=== PATIENT | male | born 1960 | race Caucasian/White ===

== ENCOUNTER 2021-03-15 09:18 | Emergency (ER) | payer OTHER ==
[2021-03-15] MEDS ORDERED: CEPHALEXIN 250 MG Prepack 8 CAP BOTTLE PO STA (09:33)
[2021-03-15] MEDS ORDERED: BACITRACIN ZINC OINT 1 PACKET TOP STA (09:33)
[2021-03-15] MEDS ORDERED: LIDOCAINE 1%-EPI 1:100000 20 ML MDV SUBQ STA (09:33)
[2021-03-15] MEDS ORDERED: TETANUS/DIPHTHERIA/PERTUSSIS 0.5 ML SYRINGE IM ONE (09:34)
--- NOTE | 2021-03-15 09:37 | ED Physician Documentation ---
History of Present Illness - Stated complaint Stated Complaint: RT ELBOW PX - Chief complaint Chief Complaint: Laceration - History obtained from History obtained from: Patient - Additonal information Additional information: 60-year-old man since with right elbow pain sudden in onset when he had a mechanical fall on stairs onto the flexed elbow this morning, sustaining a laceration that initially was bleeding that has stopped. Patient states the pain is nonradiating, not worse with range of motion, without associated weakness or sensory loss. Constant, aching, worse with pressing on the area n ear the laceration. Unsure of last tetanus shot. Review of Systems Skin: reports: Laceration (s) Musculoskeletal: reports: Extremity pain, Joint pain Neurologic: denies: Focal weakness, Numbness PD PAST MEDICAL HISTORY - Past Medical History Past Medical History: No Cardiovascular: None Respiratory: None Neuro: None Endocrine/Autoimmune: None GI: None : None HEENT: None Psych: None Musculoskeletal: None Derm: None - Past Surgical History Past Surgical History: No - Present Medications Home Medications: Ambulatory Orders Medication Instructions Recorded Confirmed cephALEXin [Keflex] 500 mg PO Q6H #28 tab 03/15/21 - Allergies Allergies/Adverse Reactions: Allergies Allergy/AdvReac Type Severity Reaction Status Date / Time No Known Drug Allergies Allergy Verified 03/15/21 09:21 - Social History Does the pt smoke?: No Smoking Status: Never smoker Does the pt drink ETOH?: Yes Does the pt have substance abuse?: No - Immunizations Immunizations are current?: No Immunizations: TDAP >10years/unknown PD ED PE NORMAL - Vitals Vital signs reviewed: Yes - General General: Alert and oriented X 3, No acute distress, Well developed/nourished - HEENT HEENT: Atraumatic, PERRL, EOMI - Neck Neck: No bony TTP - Derm Derm: Normal color, Warm and dry, Other (Laceration to right posterior elbow just distal to the joint) - Extremities Extremities: No deformity, Normal ROM s pain, Other (Right proximal radius te nder to palpation. 2+ bilateral radial pulses. Normal sensation and cap refill. Normal strength) - Neuro Neuro: Alert and oriented X 3. No: No motor deficit, No sensory deficit - Psych Psych: Normal mood, Normal affect Results - Vitals Vitals: Vital Signs - 24 hr 03/15/21 03/15/21 09:21 10:43 Temperature 36.5 C 36.6 C Heart Rate 56 L 60 Respiratory 18 16 Rate Blood Pressure 122/87 H 130/79 O2 Saturation 97 98 Oxygen O2 Source Room air Procedures - Laceration (location) Upper extremity right Length in cm: 5 Wound type: Linear, Exposure of bone, Exposure of cartilage Neurovascular status: Sensory intact, Motor intact Anesthesia: Lidocaine 1% with epi Wound preparation: Irrigated copiously NS, Wound explored, To the base Skin layer closure: Nylon, Size #-0 - enter number (4), Sutures - enter # (6) Other: Patient tolerated well, No complications, Neurovascular intact, Dressing applied, Tetanus booster given PD MEDICAL DECISION MAKING - ED course ED course: 60-year-old man presents status post fall. X-rays without signs of fracture. Full range of motion on clinical exam. Tetanus updated. We will treat with antibiotics since this is a deep wound near the joint space. Copious irrigation with normal saline and exploration showed bone involvement of the lateral epicondyle. I d/w Dr. Ayala, ground crewman mission support who said if the bone is intact then the joint is not involved. He recommends we repair the lac, give antibiotics, and have him follow up in orthopedics clinic tomorrow. Laceration cleaned and repaired with dressing placed. Strict return precautions given. sutures to be removed in 14 days. Departure - Departure Disposition: 01 Home, Self Care Clinical Impression: Laceration of elbow Condition: Good Instructions: ED Laceration All Follow-Up: Abebe Ayala MD [Provider Admit Priv/Credential] - Prescriptions: cephALEXin [Keflex] 500 mg PO Q6H #28 tab Comments: You were seen in the emergency department for right elbow laceration. Your x- ray did not show any obvious injury. You received a tetanus shot today. We placed stitches and they need to be removed in 14 days. Please monitor for any signs of infection and take your antibiotics as prescribed. Return to the emergency department if you have any new or worsening symptoms or other concerns. I spoke with Dr. Ayala who recommended we sew up the wound and give antibiotics with follow up tomorrow. Please call our orthopedic surgeon Dr. Ayala for urgent follow up in clinic tomorrow. Please also follow-up with urgent care or in [facility] for suture removal in 14 days. Forms: Activity restrictions
--- NOTE | 2021-03-15 10:11 | XRAY Report ---
PROCEDURE: Elbow 3 View RT INDICATIONS: fall onto elbow with lac TECHNIQUE: 3 views of the elbow were acquired. COMPARISON: None FINDINGS: Bones: No acute fractures or dislocations. There is a remote, rounded, well-corticated fragment seen along the medial proximal aspect of the ulna. No suspicious bony lesions. Soft tissues: There is a small elbow joint effusion. No suspicious soft tissue calcifications. No r adiopaque foreign bodies are seen. IMPRESSION: Small elbow joint effusion, without an acute fracture identified. Reviewed by: El Medrano MD on 03/15/2021 9:09 AM KRISTEN Approved by: El Medrano MD on 03/15/2021 9:09 AM KRISTEN Station ID: [id number]
[2021-03-15 10:44] VITALS: BP 130/79
== END 2021-03-15 11:00 | disposition home or self-care (01) ==
LOC: ED 09:18
DX: S51.011A Laceration without foreign body of right elbow, initial encounter (principal); W10.9XXA Fall (on) (from) unspecified stairs and steps, initial encounter; Y93.01 Activity, walking, marching and hiking; Z23 Encounter for immunization
CPT/HCPCS: 13121; 73080; 90471; 90715; 99283; A9270

== ENCOUNTER 2024-03-18 09:30 | Emergency (ER) | payer OTHER ==
[2024-03-18 09:46] VITALS: O2SAT 96
--- NOTE | 2024-03-18 11:33 | ED Physician Documentation ---
History of Present Illness - Stated complaint Stated Complaint: SWOLLEN LT HAND - Chief complaint Chief Complaint: Ext Problem - History obtained from History obtained from: Patient - History of Present Illness Timing: How many days ago (2) Pain level max: 3 Pain level now: 1 - Additonal information Additional information: 63-year-old male states that he accidentally cut his left fourth digit with a pocket knife 2 days ago. He states it created a small flap, he states that he sucked on the wound then put the flap back together and put a bandage over. This morning noticed increased redness and swelling to the back of the hand as well as a small amount of pus from the wound. Unknown last tetanus shot. Patient is right-handed. No fevers. No chills. No pain in the palmar aspect of the finger or the palm of the hand. Review of Systems Constitutional: denies: Fever, Chills PD PAST MEDICAL HISTORY - Past Medical History Cardiovascular: None Respiratory: None Neuro: None Endocrine/Autoimmune: None GI: None : None HEENT: None Psych: None Musculoskeletal: None Derm: None - Past Surgical History Past Surgical History: No - Present Medications Home Medications: Ambulatory Orders Medication Instructions Recorded Confirmed Amox/Clav 875/125 [Augmentin] 1 tab PO Q12H #20 tablet 03/18/24 Sulfamethox/Trimeth 800/160 1 each PO BID #20 tablet 03/18/24 [Bactrim Ds 800/160] - Allergies Allergies/Adverse Reactions: Allergies Allergy/AdvReac Type Severity Reaction Status Date / Time No Known Drug Allergies Allergy Verified 03/18/24 09:40 - Social History Does the pt smoke?: No Smoking Status: Never smoker Does the pt drink ETOH?: Yes Does the pt have substance abuse?: No - Immunizations Immunizations are current?: Yes Immunizations: TDAP current <10years (2020) PD ED PE NORMAL - Vitals Vital signs reviewed: Yes - General General: Alert and oriented X 3, No acute distress - HEENT HEENT: Moist mucous membranes - Derm Derm: Warm and dry - Extremities Extremities: Other - Neuro Neuro: Alert and oriented X 3 - Psych Psych: Normal mood, Normal affect - Free text exam Free text exam: There is a healing laceration to the left fourth digit, proximal phalanx, dorsal aspect. No tenderness along the palmar aspect of the finger. Full range of motion of the finger is present. No tenderness along the palm of the hand. Mild swelling along the dorsum extending up to the wrist. No streaking up the arm. Neurovascular intact Results - Vitals Vitals: Vital Signs - 24 hr 03/18/24 09:38 Temperature 36.7 C Heart Rate 63 Respiratory 16 Rate Blood Pressure 134/85 H O2 Saturation 96 Oxygen O2 Source Room air PD Medical Decision Making - ED course Complexity details: considered differential, d/w patient ED course: Patient with cellulitis of the left hand and fourth digit. We will place on antibiotics for home. We will cover with Augmentin as he did place his mouth over the wound originally to "suck on the wound". We will cover with Bactrim as well. No evidence of deep space infection in the hand. No evidence of systemic infection. No fevers. No chills. Patient counseled regarding signs and symptoms for which I believe and urgent re-evaluation would be necessary. Patient with good understanding of and agreement to plan and is comfortable going home at this time This document was made in part using voice recognition software. While efforts are made to proofread this document, sound alike and grammatical errors may occur. Departure - Departure Disposition: Home, Self Care Clinical Impression: Cellulitis Qualifiers: Site of cellulitis: extremity Site of cellulitis of extremity: upper extremity Laterality: left Qualified Code(s): L03.114 - Cellulitis of left upper limb Condition: Good Instructions: ED Infec Skin Cellulitis Follow-Up: ELMIRA DICKINSON ARNP [Primary Care Provider] - Within 1 week Prescriptions: Amox/Clav 875/125 [Augmentin] 1 tab PO Q12H #20 tablet Sulfamethox/Trimeth 800/160 [Bactrim Ds 800/160] 1 each PO BID #20 tablet Comments: Your prescription was sent to [facility] in [place]. Please follow-up with your doctor in 2 to 3 days for a wound check. You should start to notice improvement within the next 24 hours. Your last tetanus shot was 2020. Please take all antibiotics until gone, please return for increasing pain, swelling, fe vers or redness. Forms: PCP List
[2024-03-18] MEDS: SULFAMETH/TRIMETH DS 800/160 MG TABLET PO STA (12:28)
[2024-03-18] MEDS: AMOX/CLAV 875 MG/125 MG TABLET PO STA (12:28)
[2024-03-18 12:41] VITALS: BP 137/84
== END 2024-03-18 12:33 | disposition home or self-care (01) ==
LOC: ED 09:30
DX: L03.114 Cellulitis of left upper limb (principal)
CPT/HCPCS: 99283; A9270